=== PATIENT | male | born 2000 | race Caucasian/White ===

== ENCOUNTER 2021-04-18 14:24 | Outpatient (REF) | payer BC, SELFPAY ==
[2021-04-18 15:15] LABS: Influenza A PCR NEGATIVE (Negative); Influenza B PCR NEGATIVE (Negative); Resp Syncy Virus RNA Qual PCR NEGATIVE (Negative); SARS COV2 PCR INHOUSE POSITIVE (Negative)
== END 2021-04-18 14:25 | disposition home or self-care (01) ==
LOC: HO.LNP 14:24
PROVIDERS: Visit Provider Hospitalist
DX: Z20.822 Contact with and (suspected) exposure to COVID-19 (principal)
CPT/HCPCS: 0241U

== ENCOUNTER 2021-04-29 10:24 | Outpatient (REF) | payer BC, SELFPAY | END 2021-04-29 10:25 | disposition home or self-care (01) | LOC: HO.WFDLDS 10:24 | PROVIDERS: Visit Provider Internal Medicine | DX: Z13.89 Encounter for screening for other disorder (principal) ==

== ENCOUNTER 2021-05-09 12:34 | Outpatient (REF) | payer BC, SELFPAY ==
[2021-05-09 16:00] LABS: COVID-19 Test Negative (Negative)
== END 2021-05-09 12:35 | disposition home or self-care (01) ==
LOC: HO.LAB 12:34
PROVIDERS: Visit Provider Internal Medicine
DX: Z20.822 Contact with and (suspected) exposure to COVID-19 (principal)
CPT/HCPCS: 87635; C9803

== ENCOUNTER 2022-12-22 08:54 | Outpatient (AMB) | payer BC, SELFPAY ==
[2022-12-22 09:01] VITALS: BP 118/64; PULSE 67; RESP 12; TEMP 36.7; O2SAT 98; BMI 29.5
--- NOTE | 2022-12-22 09:01 | MHC.PC.OV ---
Vital Signs 12/22/22 09:01 Height 5 ft 10 in Weight 205 lb 8 oz BMI 29.5 BP 118/64 Blood Pressure Location Lt brachial Position Sitting Respiration 12 Pulse 67 Pulse Source Pulse Oximeter Temp 98.0 F Temp Source Oral Pulse Oximetry (%) 98 Oxygen Delivery Method Room Air Intake Visit Reasons: New patient-Asthma Intake Note: Patient is a new patient with a history of assthma. Allergies No Known Allergies Allergy (Verified 12/22/22 09:20) Medication List - Last Reconciled 12/22/22 by Ronnie Brisneo CNP No Known Home Meds Tobacco use date assessed: 12/22/22 Dental Screening Dental Screen Date: 12/22/22 Did you have a dental visit in the last 12 months?: Yes Did you have a dental problem in the last 6 months where you did not have access to dental care?: No Was dental information given to patient?: Patient has dentist HPI HPI Comments History of Present Illness Details 22 y/o male presents to [facility] care He notes he was last seen by his former PCP and had blood work done over a year ago He reports h/o childhood asthma Not on prescription medications. He notes he is not sexually active. He denies concerns for STD. He reports vaping daily since he was 13 years old but has been vaping occasionally recently. He drinks alcohol once weekly. He notes that he smokes marijuana daily. FMH: Father has h/o depression, Mother has h/o alcoholism, hyperthyroidism, and heart disease. [facility], [facility] Medical History (Updated 12/22/22 @ 09:35 by Ronnie Briseno CNP) Anxiety Asthma Depression Surgical History (Updated 12/22/22 @ 09:05 by Nuria Metzger CMA) No pertinent past surgical history Family History (Updated 12/22/22 @ 09:08 by Nuria Metzger CMA) Mother Family history of thyroid problem Prediabetes Alcoholism Substance abuse Father Depression Maternal Aunt Mental health disorder Maternal Grandfather Substance abuse Social History (Updated 12/22/22 @ 09:10 by Nuria Metzger CMA) Household Members: Family Housing: Apartment Alcohol intake: current Patient Tobacco Use Status: Never used Tobacco e-Cigarette/Vaping Use: Currently Using Special jose antonio needs: No service: No Current occupational status: employed Current occupation: sales Vision needs: Yes (Patient wears glasses) Questionnaire PHQ-9 Over the last 2 weeks, how often have you been bothered by any of the following problems? 1. Little interest or pleasure in doing things: several days 2. Feeling down, depressed, or hopeless: not at all 3. Trouble falling or staying asleep, or sleeping too much: several days 4. Feeling tired or having little energy: several days 5. Poor appetite or overeating: several days 6. Feeling bad about yourself - or that you are a failure or have let yourself or your family down: not at all 7. Trouble concentrating on things, such as reading the newspaper or watching television: not at all 8. Moving or speaking so slowly that other people could have noticed. Or the opposite - being so fidgety or restless that you have been moving around a lot more than usual: not at all 9. Thoughts that you would be better off or of hurting yourself in some way: not at all Total score: 4 Depression Screening Interpretation: Negative Source: Developed by Drs. Dell Bedolla, Jessie Mejia, Esa Elmore and colleagues, with an educational curtis from [employer]. Thrive Questionnaire I am a: Patient What is your living situation today?: I have a steady place to live Within the past 12 months, did the food you bought not last and you didn't have the money to get more?: Never true Within the past 12 months, did you worry whether your food would run out before you got money to buy more?: Never true Do you have trouble paying for medicines?: No Do you have trouble getting transportation to medical appointments?: No Do you have trouble paying your heating and electricity bill?: No Do you have trouble taking care of your child, family member or friend?: No Do you have trouble with day-to-day activities such as bathing, preparing meals, shopping, managing finances, etc.?: No Are you currently unemployed and looking for a job?: No Are you interested in more education?: No AUDIT C Alcohol Use Questionnaire (AUDIT-C) 1. How often do you have a drink containing alcohol?: Monthly or less 2. How many drinks containing alcohol do you have on a typical day when you are drinking?: 1 or 2 3. How often do you have six or more drinks on one occasion?: Never Total Score: 1 ANTWON-7 AMB Questionnaire ANTWON-7 Feeling nervous, anxious, or on edge: 1 = Several days Not being able to stop or control worryin = Not at all Worrying too much about different things: 1 = Several days Trouble relaxin = Several days Being so restless that it is hard to sit still: 0 = Not at all Becoming easily annoyed or irritable: 1 = Several days Feeling afraid as if something awful might happen: 0 = Not at all Total ANTWON-7 score (0-4 normal; 5-9 mild; 10-14 moderate; 15-21 severe): 4 Source: Developed by Drs. Dell Bedolla, Jessie Mejia, Esa Elmore and colleagues, with an educational curtis from [employer]. ACT Questionnaire In the past 4 weeks, how much of the time did your asthma keep you from getting as much done at work, school or at home?: A little of the time During the past 4 weeks, how often have you had shortness of breath?: 1-2 times a week During the past 4 weeks, how often did your asthma symptoms wake you up at night or earlier than usual in the morning?: Once a week During the past 4 weeks, how often have you had to use your rescue inhaler or nebulizer medication?: Not at all How would you rate your asthma control during the past 4 weeks?: Well controlled ACT Interpretation: Negative Score: 20 Review of Systems Const Details: Denies chills, Denies fatigue, Denies fever(s), Denies headache(s) and Denies weakness HEENT Denies change in vision, Denies dizziness, Denies headache(s), Denies hearing loss, Denies nasal congestion, Denies sinus pain, Denies sinus pressure and Denies sore throat Card Denies chest pain, Denies lightheadedness, Denies dyspnea and Denies other (palpitations) Resp Denies cough, Denies dyspnea and Denies wheezing GI Denies abdominal pain, Denies melena, Denies hematochezia, Denies change in bowel habits, Denies dyspepsia and Denies nausea Denies hematuria and Denies dysuria Musc Denies abnormal gait, Denies myalgias, Denies arthralgias, Denies numbness and Denies tingling Skin/Breast Denies rash, Denies unusual bruising and Denies wounds Neuro Denies abnormal gait, Denies dizziness, Denies headache(s), Denies memory loss, Denies numbness, Denies Sensory deficit (Neuro), Denies tingling and Denies weakness Psych Denies anxiety, Denies depression and Denies memory loss Endo Denies cold intolerance, Denies fatigue, Denies heat intolerance, Denies polydipsia and Denies polyuria Shaheen/Lymph Denies easy bleeding and Denies easy bruising Aller/Immun Denies wheezing Physical exam (Primary Care) Vital Signs: Last Vital Signs Temp 98.0 F 12/22/22 09:01 Pulse 67 12/22/22 09:01 Resp 12 12/22/22 09:01 BP 118/64 12/22/22 09:01 Pulse Ox 98 12/22/22 09:01 Oxygen Delivery Method Room Air 12/22/22 09:01 BMI result Body Mass Index 29.5 Tobacco/Smoking Status: Tobacco use Status Tobacco use date assessed 12/22/22 12/22/22 09:15 Patient Tobacco Use Status Never used Tobacco 12/22/22 09:15 e-Cigarette/Vaping Use Currently Using 12/22/22 09:15 PHQ-9: PHQ-9 Score PHQ-9: Total score 4 12/22/22 09:15 Depression Screening Interpretation: Negative Const Other: General: no acute distress, well developed, alert and awake Nutritional Appearance: well nourished Orientation/consciousness: patient oriented x3 HENMT Head: Yes normocephalic and Yes atraumatic Ears: hearing grossly normal bilaterally and TM's normal bilaterally General nose exam: Normal external nose present and Normal nares present Mouth: Normal oral and palatal mucosa present and moist mucous membranes Teeth and gingiva: dentition normal Throat: Yes oropharynx normal Eyes Pupils: Equal, round and reactive pupils present and Pupil accommodation reflex normal EOM: EOMs intact bilaterally Neck Neck: Yes normal visual inspection, Yes no lymphadenopathy and Yes trachea midline Thyroid: Thyroid normal Carotids: no bruits Lymphatic: no lymphadenopathy noted Chest Chest palpation & inspection: normal inspection of the chest Resp Effort & Inspection: normal respiratory effort Auscultation: clear to auscultation bilaterally Cardio Rate: regular rate Rhythm: regular rhythm Heart sounds: S1 normal heart sound present, S2 normal heart sound present, no gallops, no murmurs and no rubs Bruits: no abdominal aortic bruits and no carotid bruits GI Palpation (GI): No Abdominal aortic bruit present, Soft to palpation, nontender, No hepatosplenomegaly present and No Rebound tenderness present Auscultation: normal bowel sounds General: Yes no CVA tenderness Back/Spine/Pelvis Back: no CVA tenderness Cervical Spine: cervical ROM normal and No Cervical spine tenderness Thoracic/Lumbar Spine: thoraco-lumbar ROM normal, No pain with thoraco-lumbar ROM, No thoracic spinal tenderness and No lumbar spinal tenderness Skin General: warm and dry. Normal skin color. Normal skin turgor Lesions: no lesions Rashes: no rashes Trauma: no lacerations or abrasions Wounds: no wounds Nails: normal Neuro General: patient oriented x3, gait normal and CN's II-XI intact bilaterally Cranial nerves: Yes Equal, round and reactive pupils present Cognition (Neuro): normal cognition Gait exam (Neuro): Normal gait present Motor exam (neuro): 5/5 motor strength present throughout Sensory Exam: No Sensory deficit (Neuro) Deep tendon reflexes (DTR's): Right patellar reflex intensity grade: 2+ and Left patellar reflex intensity grade: 2+ Extrem General: Yes normal to inspection, No edema and No calf tenderness Psych Appearance: grossly normal Affect: normal affect Attitude: cooperative Thought process: Normal thought process present Assessment and Plan Assessment & Plan (1) Normal physical examination, routine: Code(s): Z00.00 - Encounter for general adult medical examination without abnormal findings Plan: No significant physical restrictions or limitations noted Advised to get routine fasting blood work done and schedule a telehealth visit for labs review Return with symptoms or concerns Verbalized understanding and agreed with treatment plan. (2) Current vaping on some days: Code(s): Z72.89 - Other problems related to lifestyle Plan: He reports vaping daily since he was 13 years old but has been vaping occasionally recently. Instructed on the serious risk and potential lung damage of oil based vaping and encouraged to avoid vaping. Verbalized understanding and agreed with treatment plan (3) Laboratory tests ordered as part of a complete physical exam (CPE): Code(s): Z00.00 - Encounter for general adult medical examination without abnormal findings Plan: Fasting labs ordered as part of a complete physical exam. Advised to fast for at least 10 hours before getting labs drawn. May drink water Verbalized understanding and agreed with treatment plan. Orders: Orders Comprehensive [place]. Panel Fast Today Z00.00 - Encounter for general adult medical examination without abnormal findings TSH reflex Free T4 Today Z00.00 - Encounter for general adult medical examination without abnormal findings Complete Blood Count Auto Diff Today Z00.00 - Encounter for general adult medical examination without abnormal findings UA CC w/rflx Micro + Cult Today Z00.00 - Encounter for general adult medical examination without abnormal findings Coding Level of Care Code New Pt Prev Care [id number]([id number] Diagnoses Normal physical examination, routine Z00.00 Current vaping on some days Z72.89 Laboratory tests ordered as part of a complete physical exam (CPE) Z00.00
== END 2022-12-22 09:37 | disposition home or self-care (01) ==
PROVIDERS: PCP Nurse Practitioner Family; Visit Provider Nurse Practitioner Family
DX: Z00.00 Encounter for general adult medical examination without abnormal findings (principal); Z72.89 Other problems related to lifestyle
CPT/HCPCS: 99385

== ENCOUNTER 2023-05-01 11:38 | Outpatient (AMB) | payer BC, SELFPAY ==
[2023-05-01 11:42] VITALS: BP 126/74; PULSE 91; RESP 13; TEMP 36.5; O2SAT 99; BMI 30.2
--- NOTE | 2023-05-01 11:42 | MHC.PC.OV ---
Vital Signs 05/01/23 11:42 Height 5 ft 10 in Weight 210 lb 8 oz BMI 30.2 BP 126/74 Blood Pressure Location Rt brachial Position Sitting Respiration 13 Pulse 91 Pulse Source Pulse Oximeter Temp 97.7 F Temp Source Temporal Artery Scan Pulse Oximetry (%) 99 Oxygen Delivery Method Room Air Intake Visit Reasons: Left Ear blockage / ? pneumonia Intake Note: Patient would like an albuterol inhaler prescribed if possible. Ultrasound Tech Required: No Accompanied by: Self / Same As Patient Allergies No Known Allergies Allergy (Verified 05/01/23 11:52) Medication List - Last Reconciled 05/01/23 by Ronnie Briseno CNP No Known Home Meds Tobacco use date assessed: 05/01/23 Dental Screening Dental Screen Date: 05/01/23 Did you have a dental visit in the last 12 months?: Yes Did you have a dental problem in the last 6 months where you did not have access to dental care?: No Was dental information given to patient?: Patient has dentist HPI HPI Comments History of Present Illness Details 22-year-old male presents with complaints of persistent productive cough with brownish/green/yellow phlegm. He reports associated left ear congestion. His symptoms have been ongoing for the past 3 weeks. He notes that he may have had the flu around [place]; he tested negative for COVID-19 multiple times. He notes that most of his symptoms subsided. He has been vaping less, only with cravings, since his symptoms started. He reports shortness of breath and wheezing especially at night. He notes he snores when he sleeps. [facility] Medical History Anxiety Depression Asthma Surgical History No pertinent past surgical history Family History Mother Family history of thyroid problem Prediabetes Alcoholism Substance abuse Father Depression Maternal Aunt Mental health disorder Maternal Grandfather Substance abuse Social History Household Members: Family Housing: Apartment Alcohol intake: current Patient Tobacco Use Status: Never used Tobacco e-Cigarette/Vaping Use: Currently Using Special jose antonio needs: No service: No Current occupational status: employed Current occupation: [employer] Cognitive needs: No Hearing needs: No Vision needs: No (Patient wears glasses) Questionnaire ACT Questionnaire In the past 4 weeks, how much of the time did your asthma keep you from getting as much done at work, school or at home?: Some of the time During the past 4 weeks, how often have you had shortness of breath?: 3-6 times a week During the past 4 weeks, how often did your asthma symptoms wake you up at night or earlier than usual in the morning?: 2-3 nights a week How would you rate your asthma control during the past 4 weeks?: Somewhat controlled ACT Interpretation: Positive Score: 11 Review of Systems Const Details: Const Denies chills, Denies fatigue, Denies fever(s), Denies headache(s) and Denies weakness ENT Reports as per HPI Card Denies chest pain, Denies lightheadedness, Denies dyspnea and Denies other (Palpitations) Resp Reports cough, Denies dyspnea, Denies wheezing and Denies other ( shortness of breath) GI Denies abdominal pain, Denies melena, Denies hematochezia, Denies change in bowel habits, Denies dyspepsia and Denies nausea Denies hematuria and Denies dysuria Musc Denies abnormal gait, Denies myalgias, Denies arthralgias, Denies numbness and Denies tingling Skin/Breast Denies rash, Denies unusual bruising and Denies wounds Neuro Denies abnormal gait, Denies dizziness, Denies headache(s), Denies memory loss, Denies numbness, Denies Sensory deficit (Neuro), Denies tingling and Denies weakness Psych Denies anxiety, Denies depression, Denies memory loss Endo Denies cold intolerance, Denies fatigue, Denies heat intolerance, Denies polydipsia and Denies polyuria Aller/Immun Denies wheezing Physical exam (Primary Care) Vital Signs: Last Vital Signs Temp 97.7 F 05/01/23 11:42 Pulse 91 05/01/23 11:42 Resp 13 05/01/23 11:42 BP 126/74 05/01/23 11:42 Pulse Ox 99 05/01/23 11:42 Oxygen Delivery Method Room Air 05/01/23 11:42 BMI result Body Mass Index 30.2 Tobacco/Smoking Status: Tobacco use Status Tobacco use date assessed 05/01/23 05/01/23 11:51 Patient Tobacco Use Status Never used Tobacco 05/01/23 11:51 e-Cigarette/Vaping Use Currently Using 05/01/23 11:51 Const Other: General: no acute distress and well developed Nutritional Appearance: well nourished Orientation/consciousness: patient oriented x3 HENMT Head is normocephalic Impacted cerumen left ear. TMs are normal Nasal turbinates and oropharynx are pink and moist Sinuses are nontender with palpation No auricular or cervical lymphadenopathy Eyes General: appearance normal, both eyes and all related structures Pupils: Equal, round and reactive pupils present EOM: EOMs intact bilaterally Resp Effort & Inspection: normal respiratory effort Auscultation: Wheezing to auscultation bilaterally Cardio Rate: regular rate Rhythm: regular rhythm Heart sounds: S1 normal heart sound present, S2 normal heart sound present, no gallops, no murmurs and no rubs GI Palpation (GI): No Abdominal aortic bruit present, Soft to palpation, nontender, No hepatosplenomegaly present and No Rebound tenderness present Auscultation: normal bowel sounds General: Yes no CVA tenderness Back/Spine/Pelvis Back: no CVA tenderness Cervical Spine: cervical ROM normal and No Cervical spine tenderness Thoracic/Lumbar Spine: thoraco-lumbar ROM normal, No pain with thoraco-lumbar ROM, No thoracic spinal tenderness and No lumbar spinal tenderness Extrem General: Yes normal to inspection, No edema and No calf tenderness Skin General: warm and dry. Normal skin color. Normal skin turgor Neuro General: patient oriented x3, gait normal and no focal neuro deficit Cranial nerves: Yes Equal, round and reactive pupils present Cognition (Neuro): normal cognition Gait exam (Neuro): Normal gait present Sensory Exam: No Sensory deficit (Neuro) Psych Appearance: grossly normal Affect: normal affect Attitude: cooperative Thought process: Normal thought process present Assessment and Plan Assessment & Plan (1) Cough: Code(s): R05.9 - Cough, unspecified Plan: 3 weeks of persistent cough Lungs wheezing to auscultation bilaterally Likely viral illness, bronchitis, and pneumonia Prednisone and Z-Alfredo ordered. Take as prescribed Albuterol inhaler ordered. Use as prescribed Chest x-ray ordered Advised to avoid vaping Nasal swab collected and will be sent for COVID/flu/RSV Follow-up with worsening or new symptoms Verbalized understanding and agreed with treatment plan (2) Snoring: Code(s): R06.83 - Snoring Plan: Shortness of breath and wheezing especially at night Snoring during sleep Likely sleep apnea Advised to use albuterol inhaler as prescribed Referred to sleep medicine Follow-up with worsening or new symptoms Verbalized understanding and agreed with treatment plan (3) Impacted cerumen, left ear: Code(s): H61.22 - Impacted cerumen, left ear Plan: Left ear congestion x 3 weeks Impacted cerumen left ear. Cerumen removal with ear curette Reports continued ear congestion Likely allergies or viral illness Prednisone, Z-Alfredo, and albuterol as prescribed Return with worsening or new symptoms Verbalized understanding and agreed with treatment plan Orders: Orders XR chest 2V Today R05.9 - Cough, unspecified SARS-CoV2/FLU/RSV Today R05.9 - Cough, unspecified Referrals Sleep Medicine Referral R06.83 - Snoring Medications: New prednisone 40 mg (2 x 20 mg) PO DAILY 10 tabs 0RF 5 days azithromycin (Zithromax Z-Alfredo) For 250 mg dose pack: take 500 mg today (day 1), then 250 mg for 4 days (days 2-5) PO 6 tabs 0RF Coding Level of Care Code Est Pt Level 4 (00446) Diagnoses Cough R05.9 Snoring R06.83 Impacted cerumen, left ear H61.22
== END 2023-05-01 12:11 | disposition home or self-care (01) ==
PROVIDERS: PCP Nurse Practitioner Family; Visit Provider Nurse Practitioner Family
DX: R05.9 Cough, unspecified (principal); R06.83 Snoring; H61.22 Impacted cerumen, left ear
CPT/HCPCS: 99214

== ENCOUNTER 2023-05-01 12:20 | Outpatient (REF) | payer BC, SELFPAY | END 2023-05-01 12:21 | disposition home or self-care (01) | LOC: HO.LAB 12:20 | PROVIDERS: Visit Provider Nurse Practitioner Family | DX: Z11.52 Encounter for screening for COVID-19 (principal); Z20.822 Contact with and (suspected) exposure to COVID-19; R05.9 Cough, unspecified | CPT/HCPCS: 0241U ==

== ENCOUNTER 2023-05-04 12:45 | Outpatient (REF) | payer BC, SELFPAY | END 2023-05-04 12:46 | disposition home or self-care (01) | LOC: HO.LAB 12:45 | PROVIDERS: PCP Nurse Practitioner Family; Visit Provider Nurse Practitioner Family | DX: Z00.00 Encounter for general adult medical examination without abnormal findings (principal); R05.9 Cough, unspecified | CPT/HCPCS: 36415; 71046; 80053; 81003; 84443; 85025 ==